=== PATIENT | female | born 1995 | race Two or more races ===

== ENCOUNTER 2017-07-25 23:35 | Emergency (ER) | payer OTHER ==
[2017-07-25 20:56] LABS: BASO % 0.3 % (0.0-1.0); EOS # 0.1 10^3/uL (0.0-0.50); EOS % 1.5 % (0.0-3.0); HEMATOCRIT 30.3 % (36.0-47.0); HEMOGLOBIN 9.8 g/dl (12.0-15.5); IMMATURE GRANULOCYTE % 0.3 % (0-3.0); LYMPH % 30.1 % (24.0-44.0); MEAN CORPUSCULAR HEMOGLOBIN 24.1 pg (27.0-33.0); MEAN CORPUSCULAR HGB CONC 32.3 g/dl (32.0-36.5); MEAN CORPUSCULAR VOLUME 74.6 fl (80.0-96.0); MONO # 0.7 10^3/uL (0.0-0.8); MONO % 10.3 % (0.0-5.0); NEUTROPHILS # 3.8 10^3/uL (1.8-7.7); NEUTROPHILS % 57.5 % (36.0-66.0); PLATELET COUNT, AUTOMATED 225 10^3/uL (150-450); RED BLOOD COUNT 4.06 10^6/uL (4.00-5.40); RED CELL DISTRIBUTION WIDTH 16.7 % (11.5-14.5); WHITE BLOOD COUNT 6.6 10^3/uL (4.0-10.0)
[2017-07-25 21:20] LABS: LACTIC ACID SEPSIS PROTOCOL 1.4 MMOL/L (0.4-2.0)
[2017-07-25 21:37] LABS: CONTROL LINE HCG INT CTR LINE PRESENT; HCG, SERUM QUALITATIVE NEGATIVE (NEGATIVE)
[2017-07-25 21:45] LABS: ALBUMIN 3.5 GM/DL (3.2-5.2); ALBUMIN/GLOBULIN RATIO 1.09 (1.00-1.93); ALKALINE PHOSPHATASE 65 U/L (45-117); ALT/SGPT 18 U/L (12-78); ANION GAP 6 MEQ/L (8-16); AST/SGOT 13 U/L (7-37); BILIRUBIN,DIRECT < 0.1 MG/DL (0.0-0.2); BILIRUBIN,TOTAL 0.1 MG/DL (0.2-1.0); BLOOD UREA NITROGEN 10 MG/DL (7-18); CALCIUM LEVEL 8.6 MG/DL (8.5-10.1); CARBON DIOXIDE LEVEL 28 MEQ/L (21-32); CHLORIDE LEVEL 107 MEQ/L (98-107); CREATININE FOR GFR 0.92 MG/DL (0.55-1.30); GLOMERULAR FILTRATION RATE > 60.0 (>60); GLUCOSE, FASTING 109 MG/DL (70-100); LIPASE 128 U/L (73-393); POTASSIUM SERUM 3.7 MEQ/L (3.5-5.1); SODIUM LEVEL 141 MEQ/L (136-145); TOTAL PROTEIN 6.7 GM/DL (6.4-8.2)
[2017-07-25] MEDS: KETOROLAC 30 MG/ML VIAL (J1885) IV (22:16)
[~2017-07-25 23:35] MED LIST: ISOVUE-370 76% 100ML VIAL (Q9967) As Ordered
== END 2017-07-25 23:55 | disposition home or self-care (01) ==
LOC: M ED 23:35
DX: N92.0 Excessive and frequent menstruation with regular cycle (principal); N80.9 Endometriosis, unspecified; D64.9 Anemia, unspecified; F17.200 Nicotine dependence, unspecified, uncomplicated
CPT/HCPCS: Q9967

== ENCOUNTER 2017-08-17 21:37 | Inpatient (IN) | payer OTHER ==
[2017-08-17 22:58] LABS: HEMATOCRIT 32.3 % (36.0-47.0); HEMOGLOBIN 10.1 g/dl (12.0-15.5); MEAN CORPUSCULAR HEMOGLOBIN 23.8 pg (27.0-33.0); MEAN CORPUSCULAR HGB CONC 31.3 g/dl (32.0-36.5); MEAN CORPUSCULAR VOLUME 76.2 fl (80.0-96.0); PLATELET COUNT, AUTOMATED 218 10^3/uL (150-450); RED BLOOD COUNT 4.24 10^6/uL (4.00-5.40); RED CELL DISTRIBUTION WIDTH 15.9 % (11.5-14.5); WHITE BLOOD COUNT 5.1 10^3/uL (4.0-10.0)
[2017-08-17 23:06] LABS: CONTROL LINE HCG INT CTR LINE PRESENT; HCG, SERUM QUALITATIVE NEGATIVE (NEGATIVE)
[2017-08-17 23:09] LABS: AMPHETAMINES LEVEL URINE NEGATIVE (NEGATIVE); BARBITURATES URINE NEGATIVE (NEGATIVE); BENZODIAZEPINES URINE NEGATIVE (NEGATIVE); CANNABINOIDS URINE NEGATIVE (NEGATIVE); COCAINE METABOLITE URINE NEGATIVE (NEGATIVE); METHADONE URINE NEGATIVE (NEGATIVE); OPIATES URINE NEGATIVE (NEGATIVE); PHENCYCLIDINE URINE NEGATIVE (NEGATIVE)
[2017-08-17 23:20] LABS: ALBUMIN/GLOBULIN RATIO 1.18 (1.00-1.93); ALKALINE PHOSPHATASE 65 U/L (45-117); ALT/SGPT 21 U/L (12-78); ANION GAP 9 MEQ/L (8-16); AST/SGOT 16 U/L (7-37); BILIRUBIN,DIRECT < 0.1 MG/DL (0.0-0.2); BILIRUBIN,TOTAL 0.1 MG/DL (0.2-1.0); BLOOD UREA NITROGEN 11 MG/DL (7-18); CALCIUM LEVEL 9.1 MG/DL (8.5-10.1); CARBON DIOXIDE LEVEL 24 MEQ/L (21-32); CHLORIDE LEVEL 109 MEQ/L (98-107); CREATININE FOR GFR 0.88 MG/DL (0.55-1.30); ETHYL ALCOHOL (ETHANOL) 0.056 % (0.000-0.010); GLOMERULAR FILTRATION RATE > 60.0 (>60); GLUCOSE, FASTING 83 MG/DL (70-100); POTASSIUM SERUM 3.7 MEQ/L (3.5-5.1); SALICYLATE LEVEL < 1.7 MG/DL (5.0-30.0); SODIUM LEVEL 142 MEQ/L (136-145); TOTAL PROTEIN 7.4 GM/DL (6.4-8.2)
[2017-08-17 23:38] LABS: ACETAMINOPHEN LEVEL < 2.0 UG/ML (10.0-30.0)
[2017-08-18] MEDS: CitaloPRAM (CeleXA) 20 MG TAB PO ×2 (09:00→09:28)
[2017-08-18] MEDS: buPROPion **XL** TABLET 150MG (WELLBUTRIN XL) PO (09:28)
[2017-08-18] MEDS ORDERED: MAALOX 30 ML SUSP *UDC PO (12:15)
[2017-08-18] MEDS ORDERED: MOM 30ML SUSPENSION UDC PO (12:15)
[2017-08-18] MEDS ORDERED: traZODone 50 MG TAB PO (12:15)
[2017-08-18] MEDS: NICOTINE 14 MG/24 HR TRANSDERMAL TD (14:21)
[2017-08-18] MEDS ORDERED: diphenhydrAMINE 50 MG CAP PO (14:30)
[2017-08-19] MEDS: NICOTINE 14 MG/24 HR TRANSDERMAL TD (08:13)
[2017-08-19] MEDS: ESCITALOPRAM OXALATE 10 MG TAB (LEXAPRO) PO (15:02)
[2017-08-19] MEDS: PRAZOSIN 1 MG CAP PO (21:56)
[2017-08-19] MEDS: traZODone 100 MG TAB PO (21:56)
[2017-08-20] MEDS: NICOTINE 14 MG/24 HR TRANSDERMAL TD (09:13)
[2017-08-20] MEDS: ESCITALOPRAM OXALATE 10 MG TAB (LEXAPRO) PO (09:14)
[2017-08-20] MEDS: traZODone 100 MG TAB PO (21:24)
[2017-08-20] MEDS: PRAZOSIN 1 MG CAP PO (21:25)
[2017-08-21] MEDS: ESCITALOPRAM OXALATE 10 MG TAB (LEXAPRO) PO (08:41)
[2017-08-21] MEDS: NICOTINE 14 MG/24 HR TRANSDERMAL TD (08:42)
[2017-08-21] MEDS: traZODone 100 MG TAB PO (21:29)
[2017-08-21] MEDS: PRAZOSIN 1 MG CAP PO (21:30)
[2017-08-22] MEDS: ESCITALOPRAM OXALATE 10 MG TAB (LEXAPRO) PO (07:52)
[2017-08-22] MEDS: NICOTINE 14 MG/24 HR TRANSDERMAL TD (07:53)
[2017-08-22] MEDS: ACETAMINOPHEN TAB 650MG DOSE (2X325MG) PO (18:51)
[2017-08-22] MEDS: PRAZOSIN 1 MG CAP PO (21:41)
[2017-08-22] MEDS: traZODone 100 MG TAB PO (21:41)
[2017-08-23] MEDS: ESCITALOPRAM OXALATE 10 MG TAB (LEXAPRO) PO (08:52)
[2017-08-23] MEDS: NICOTINE 14 MG/24 HR TRANSDERMAL TD (08:53)
== END 2017-08-23 12:45 | disposition home or self-care (01) | DRG 885 ==
LOC: M ED 08-18 12:58 → M PSY 08-18 13:00 → M ED INP 08-18 12:03 → M PSY 08-18 13:00 → M ED 21:37
DX: F33.2 Major depressive disorder, recurrent severe without psychotic features (principal); F10.10 Alcohol abuse, uncomplicated; F17.210 Nicotine dependence, cigarettes, uncomplicated; M51.26 Other intervertebral disc displacement, lumbar region; D64.9 Anemia, unspecified; F43.10 Post-traumatic stress disorder, unspecified; Z79.899 Other long term (current) drug therapy; Z91.14 Patient's other noncompliance with medication regimen

== ENCOUNTER 2017-09-03 20:28 | Emergency (ER) | payer OTHER | END 2017-09-03 22:31 | disposition left against medical advice (07) | LOC: M ED 20:28 | DX: Z53.21 Procedure and treatment not carried out due to patient leaving prior to being seen by health care provider (principal) | CPT/HCPCS: 99281 ==

== ENCOUNTER 2017-09-28 14:51 | Emergency (ER) | payer OTHER ==
[2017-09-28] MEDS: ONDANSETRON 4MG/2ML VIAL (J2405) IV (17:26)
[2017-09-28] MEDS: KETOROLAC 30 MG/ML VIAL (J1885) IV (17:26)
[2017-09-28] MEDS: NS 1,000 ML IV (17:28)
[2017-09-28 17:34] LABS: HEMATOCRIT 33.6 % (36.0-47.0); HEMOGLOBIN 10.6 g/dl (12.0-15.5); MEAN CORPUSCULAR HEMOGLOBIN 24.1 pg (27.0-33.0); MEAN CORPUSCULAR HGB CONC 31.5 g/dl (32.0-36.5); MEAN CORPUSCULAR VOLUME 76.4 fl (80.0-96.0); PLATELET COUNT, AUTOMATED 233 10^3/uL (150-450); RED CELL DISTRIBUTION WIDTH 15.7 % (11.5-14.5); WHITE BLOOD COUNT 4.7 10^3/uL (4.0-10.0)
[2017-09-28 17:55] LABS: ANION GAP 6 MEQ/L (8-16); BLOOD UREA NITROGEN 6 MG/DL (7-18); CALCIUM LEVEL 8.7 MG/DL (8.5-10.1); CARBON DIOXIDE LEVEL 28 MEQ/L (21-32); CHLORIDE LEVEL 107 MEQ/L (98-107); CREATININE FOR GFR 0.76 MG/DL (0.55-1.30); GLOMERULAR FILTRATION RATE > 60.0 (>60); GLUCOSE, FASTING 88 MG/DL (70-100); POTASSIUM SERUM 4.3 MEQ/L (3.5-5.1); SODIUM LEVEL 141 MEQ/L (136-145)
[2017-09-28] MEDS: PERCOCET 5MG/325MG TAB PO (20:04)
== END 2017-09-28 20:14 | disposition home or self-care (01) ==
LOC: M ED 14:51
DX: G43.909 Migraine, unspecified, not intractable, without status migrainosus (principal); N80.9 Endometriosis, unspecified; Z79.899 Other long term (current) drug therapy; F17.210 Nicotine dependence, cigarettes, uncomplicated
CPT/HCPCS: J2405

== ENCOUNTER 2017-11-24 15:22 | Emergency (ER) | payer OTHER ==
[2017-11-24] MEDS ORDERED: DERMABOND TOPICAL SKIN ADHESIVE TOP (16:00)
[2017-11-24] MEDS: ADACEL/BOOSTRIX VACCINE (DIPHTH/PERTUSS/ACELL/TETANUS)0.5ML SYR (90715) IM (16:10)
[2017-11-24] MEDS: DERMABOND TOPICAL SKIN ADHESIVE TOP (16:18)
== END 2017-11-24 16:40 | disposition home or self-care (01) ==
LOC: M ED 15:22
DX: S61.216A Laceration without foreign body of right little finger without damage to nail, initial encounter (principal); W26.0XXA Contact with knife, initial encounter; Y92.59 Other trade areas as the place of occurrence of the external cause; Y99.0 Civilian activity done for income or pay; F33.9 Major depressive disorder, recurrent, unspecified; F41.9 Anxiety disorder, unspecified; D50.9 Iron deficiency anemia, unspecified
CPT/HCPCS: 90715

== ENCOUNTER 2018-06-05 07:26 | Emergency (ER) | payer OTHER ==
[~2018-06-05] VITALS: Ht 162.6 cm; Wt 47.7 kg
[~2018-06-05 07:26] MED LIST changes: +CITA20TA7 PO; +DIPH50CA PO; +ESCI10TA2 PO; -ISOVUE-370 76% 100ML VIAL (Q9967) As Ordered; +KETO10TAB PO; +MINI1CAP PO; +TRAZ10TA PO; +VIST25CA PO; +VITACHTA PO; +WELLTAB38 PO
[2018-06-05 08:08] LABS: BASO % 0.3 % (0.0-1.0); EOS # 0.1 10^3/uL (0.0-0.50); EOS % 1.1 % (0.0-3.0); HEMATOCRIT 31.2 % (36.0-47.0); HEMOGLOBIN 9.6 g/dl (12.0-15.5); LYMPH # 1.3 10^3/uL (1.5-6.5); LYMPH % 19.4 % (24.0-44.0); MEAN CORPUSCULAR HEMOGLOBIN 21.8 pg (27.0-33.0); MEAN CORPUSCULAR HGB CONC 30.8 g/dl (32.0-36.5); MEAN CORPUSCULAR VOLUME 70.7 fl (80.0-96.0); MONO # 0.6 10^3/uL (0.0-0.8); NEUTROPHILS # 4.6 10^3/uL (1.8-7.7); PLATELET COUNT, AUTOMATED 220 10^3/uL (150-450); RED BLOOD COUNT 4.41 10^6/uL (4.00-5.40); WHITE BLOOD COUNT 6.6 10^3/uL (4.0-10.0)
[2018-06-05 08:34] LABS: HCG, SERUM QUALITATIVE NEGATIVE (NEGATIVE)
[2018-06-05 08:43] LABS: BLOOD UREA NITROGEN 11 MG/DL (7-18); CALCIUM LEVEL 8.5 MG/DL (8.5-10.1); CARBON DIOXIDE LEVEL 25 MEQ/L (21-32); CHLORIDE LEVEL 109 MEQ/L (98-107); CREATININE FOR GFR 0.72 MG/DL (0.55-1.30); FREE T4 1.12 NG/DL (0.76-1.46); GLOMERULAR FILTRATION RATE > 60.0 (>60); GLUCOSE, FASTING 79 MG/DL (70-100); MAGNESIUM LEVEL 1.8 MG/DL (1.8-2.4); POTASSIUM SERUM 4.1 MEQ/L (3.5-5.1); SODIUM LEVEL 139 MEQ/L (136-145)
[2018-06-05 10:24] VITALS: BP 107/65
--- NOTE | 2018-06-05 10:41 | REP ---
CHEST: Two views. There is no evidence of acute infiltrate. No pleural effusion is seen. The heart is normal in size. The mediastinal silhouette is unremarkable. The visualized osseous structures are intact. IMPRESSION: No acute pulmonary disease. Electronically Signed by Roger Luis MD 06/05/2018 04:25 P
--- NOTE | 2018-06-05 14:52 | ECGEPIP ---
Stationary ECG Study [facility] - ED Test Date: 2018-06-05 Pat Name: AMBER BOJORQUEZ Department: Room: - Gender: F Freight Inspector: : 1995 Requested By: LOBITO Rebolledo Order Number: [id number] Reading MD: Brant Parr Measurements Intervals [place] Rate: 74 P: 55 VT: 169 QRS: 27 QRSD: 88 T: 24 QT: 379 QTc: 422 Interpretive Statements SINUS RHYTHM Similar to tracing done 09-28-17 Electronically Signed On 06-05-2018 14:51:56 EDT by Brant Parr
== END 2018-06-05 10:45 | disposition home or self-care (01) ==
LOC: M ED 07:26 → EDBD 07:26 → M ED 10:45
DX: R55 Syncope and collapse (principal); F17.220 Nicotine dependence, chewing tobacco, uncomplicated; Z86.2 Personal history of diseases of the blood and blood-forming organs and certain disorders involving the immune mechanism; Z86.69 Personal history of other diseases of the nervous system and sense organs; Z79.84 Long term (current) use of oral hypoglycemic drugs; Z79.899 Other long term (current) drug therapy

== ENCOUNTER 2018-06-05 21:10 | Emergency (ER) | payer OTHER ==
[~2018-06-05] VITALS: Ht 162.6 cm; Wt 47.7 kg
[2018-06-05] MEDS ORDERED: PROCHLORPERAZINE 10 MG/2 ML VIAL (J0780) IV ONE (22:15)
[2018-06-05] MEDS ORDERED: KETOROLAC 30 MG/ML VIAL (J1885) IV ONE (22:15)
[2018-06-05] MEDS ORDERED: ACETAMINOPHEN 500 MG TAB PO ONE (22:15)
[2018-06-05] MEDS ORDERED: diphenhydrAMINE INJ 50MG/ML VIAL (J1200) IV ONE (22:15)
[2018-06-05] MEDS ORDERED: NS 1,000 ML IV ONE (22:15)
[2018-06-05 23:28] LABS: HEMATOCRIT 31.8 % (36.0-47.0); HEMOGLOBIN 9.9 g/dl (12.0-15.5); MEAN CORPUSCULAR HEMOGLOBIN 22.3 pg (27.0-33.0); MEAN CORPUSCULAR HGB CONC 31.1 g/dl (32.0-36.5); MEAN CORPUSCULAR VOLUME 71.8 fl (80.0-96.0); PLATELET COUNT, AUTOMATED 232 10^3/uL (150-450); RED BLOOD COUNT 4.43 10^6/uL (4.00-5.40); WHITE BLOOD COUNT 5.1 10^3/uL (4.0-10.0)
--- NOTE | 2018-06-05 23:29 | REPVR ---
EXAM: CT Head Without Contrast EXAM DATE/TIME: 06/05/2018 10:57 PM CLINICAL HISTORY: 23 years old, female; Pain; Headache; Additional info: Syncope this am with no resolution of headache TECHNIQUE: Imaging protocol: Axial computed tomography images of the head/brain without contrast. Radiation optimization: All CT scans at this facility use at least one of these dose optimization techniques: automated exposure control; mA and/or kV adjustment per patient size (includes targeted exams where dose is matched to clinical indication); or iterative reconstruction. COMPARISON: CT Head without contrast 09/28/2017 5:58 PM FINDINGS: Brain: No CT evidence of acute intracranial hemorrhage or acute territorial infarction. No significant mass effect or midline shift. Basal cisterns patent. Ventricles: Normal in size and configuration. Bones/joints: No acute osseous abnormality. Sinuses: Grossly unremarkable. Mastoid air cells: Grossly unremarkable. Soft tissues: Grossly unremarkable. IMPRESSION: No CT evidence of acute intracranial pathology. Electronically signed by: Javid Laws On 06/05/2018 23:28:41 PM
[2018-06-05 23:53] LABS: BLOOD UREA NITROGEN 12 MG/DL (7-18); CALCIUM LEVEL 8.3 MG/DL (8.5-10.1); CARBON DIOXIDE LEVEL 27 MEQ/L (21-32); CHLORIDE LEVEL 108 MEQ/L (98-107); CREATININE FOR GFR 0.74 MG/DL (0.55-1.30); GLOMERULAR FILTRATION RATE > 60.0 (>60); GLUCOSE, FASTING 102 MG/DL (70-100); POTASSIUM SERUM 3.7 MEQ/L (3.5-5.1); SODIUM LEVEL 139 MEQ/L (136-145)
[2018-06-06 01:26] VITALS: BP 113/74
== END 2018-06-06 01:27 | disposition home or self-care (01) ==
LOC: M ED 21:10
DX: G43.829 Menstrual migraine, not intractable, without status migrainosus (principal); Z87.820 Personal history of traumatic brain injury; Z79.899 Other long term (current) drug therapy
CPT/HCPCS: 70450; 80048; 85027; 96361; 96374; 96375; 99284; J0780; J1200; J1885

== ENCOUNTER 2018-06-20 07:56 | Day surgery (SDC) | payer OTHER ==
[~2018-06-20] VITALS: Ht 162.6 cm; Wt 54.9 kg
[2018-06-20] MEDS ORDERED: LR 1,000 ML IV SCH ×2 (08:30→12:00)
[2018-06-20] MEDS ORDERED: LIDOCAINE 1% MDV 20ML VIAL SQ PRN (08:30)
[2018-06-20 08:31] LABS: HEMATOCRIT 31.9 % (36.0-47.0); HEMOGLOBIN 9.8 g/dl (12.0-15.5); MEAN CORPUSCULAR HEMOGLOBIN 21.9 pg (27.0-33.0); MEAN CORPUSCULAR HGB CONC 30.7 g/dl (32.0-36.5); MEAN CORPUSCULAR VOLUME 71.4 fl (80.0-96.0); PLATELET COUNT, AUTOMATED 243 10^3/uL (150-450); RED BLOOD COUNT 4.47 10^6/uL (4.00-5.40); WHITE BLOOD COUNT 3.3 10^3/uL (4.0-10.0)
[2018-06-20] MEDS ORDERED: ROCURONIUM BROMIDE 50 MG/5 ML VIAL As Ordered ONE (08:52)
[2018-06-20] MEDS ORDERED: LIDOCAINE 2% INJ 100 MG/5 ML SDV (FOR ANES.) As Ordered ONE (08:52)
[2018-06-20] MEDS ORDERED: fentaNYL 250 MCG/5 ML INJECTION (J3010) As Ordered ONE (08:52)
[2018-06-20] MEDS ORDERED: PROPOFOL 200 MG/20 ML VIAL As Ordered ONE (08:52)
[2018-06-20] MEDS ORDERED: MIDAZOLAM INJ 2 MG/2 ML VIAL (J2250) As Ordered ONE (08:52)
[2018-06-20 09:03] LABS: HCG, SERUM QUALITATIVE NEGATIVE (NEGATIVE)
[2018-06-20] MEDS ORDERED: BUPIVACAINE HCL 0.25% 30 ML VIAL As Ordered ONE (09:47)
[2018-06-20] MEDS ORDERED: dexameTHASONE 4 MG/ML 1ML VIAL (J1100) As Ordered ONE (10:22)
[2018-06-20] MEDS ORDERED: GLYCOPYRROLATE INJ 0.2 MG/ML 2 ML VIAL As Ordered ONE (10:36)
[2018-06-20] MEDS ORDERED: NEOSTIGMINE 10 MG/10 ML VIAL (J2710) As Ordered ONE ×2 (10:36→10:37)
[2018-06-20] MEDS ORDERED: ONDANSETRON 4MG/2ML VIAL (J2405) As Ordered ONE (10:36)
[2018-06-20] MEDS ORDERED: KETOROLAC 60 MG/2 ML VIAL (J1885) As Ordered ONE (10:36)
[2018-06-20] MEDS ORDERED: SUGAMMADEX SODIUM 500 MG/5 ML VIAL (BRIDION) As Ordered ONE (10:53)
[2018-06-20] MEDS ORDERED: KETOROLAC 30 MG/ML VIAL (J1885) IV ONE (11:00)
[2018-06-20] MEDS ORDERED: PERCOCET 5MG/325MG TAB PO PRN ×2 (11:45→12:00)
[2018-06-20] MEDS ORDERED: MEPERIDINE INJ 25 MG/ML VIAL (J2175) IV PRN (12:00)
[2018-06-20] MEDS ORDERED: fentaNYL 100 MCG/2 ML INJECTION (J3010) IV PRN (12:00)
[2018-06-20] MEDS: METOCLOPRAMIDE INJ 10MG/2ML VIAL (J2765) IV PRN ×2 (12:00→12:39)
[2018-06-20] MEDS ORDERED: ONDANSETRON 4MG/2ML VIAL (J2405) IV PRN (12:00)
--- NOTE | 2018-06-20 12:59 | RO ---
DATE OF PROCEDURE: 06/20/2018 PREOPERATIVE DIAGNOSIS: Chronic pelvic pain. POSTOPERATIVE DIAGNOSIS: Chronic pelvic pain, without any gross evidence of endometriosis or other explanations for cause of pain. PROCEDURE: Diagnostic laparoscopy and Mirena intrauterine device (IUD) insertion. SURGEON: Dr. Kike Rogers [place] OP: Dr. Roger Reza ANESTHESIA: General anesthesia. FLUIDS: 1 liter lactated Ringers (LR). URINE OUTPUT: 200 mL via Sanford catheter. ESTIMATED BLOOD LOSS (EBL): 2 mL. ANTIBIOTICS: None indicated. COMPLICATIONS: None. OPERATIVE FINDINGS: A very small 0.5 cm fibroid on the uterine fundus. Uterus otherwise normal. Normal ovaries bilaterally. Normal tubes bilaterally. Ovarian fossa inspected bilaterally and normal. Anterior and posterior cul-de-sacs normal. Uterosacral ligaments normal. No evidence of endometriosis anywhere in the pelvis. Normal appearing appendix and normal liver edge. Normal gallbladder. Normal gastric curve. DETAILED PROCEDURE DESCRIPTION: The risks, benefits, indications, and alternatives of the procedure were reviewed with the patient and informed consent was obtained. The patient was taken to the operating room where general anesthesia was obtained without difficulty. The patient was then placed in the lithotomy position using Dax stirrups. An exam under anesthesia was then performed and was a significant for a midline anteverted 8-week sized uterus. The patient was then prepped and draped in the usual sterile fashion. A surgical time-out was then performed and the patient's identity and planned procedures were verified with the operative team. A Sanford catheter was placed first to drain the bladder. A sterile speculum was then placed into the patient's vagina and the cervix was visualized. A [employer] uterine manipulator was inserted into the uterus as a means to manipulate the uterus. The sterile speculum was then removed. After gloves were exchanged, attention was turned to the patient's abdomen where a 5 mm skin incision was made in the inferior aspect of the umbilicus after injection of Marcaine. A 5 mm trocar and sleeve were then carefully introduced into the peritoneal cavity under direct visualization at a 90 degree angle while tenting up the abdominal wall. Intraperitoneal placement was confirmed under direct visualization with the laparoscope and entry pressure was noted to be less than 5 mmHg. A pneumoperitoneum was then obtained with several liters of CO2 gas. Upon entry into the peritoneal cavity, structures immediately below the incision were inspected and found to be free of injury. Initial survey of the upper abdomen revealed a normal liver edge, normal gallbladder, and normal gastric curve. A second 5 mm trocar was then inserted in the left lower quadrant under direct visualization after injection of Marcaine and skin incision made with a scalpel. Survey of the patient's pelvis was notable for a normal appearing uterus other than a small 0.5 cm fibroid at the fundus. Fallopian tubes and ovaries bilaterally were normal in appearance. The anterior and posterior cul-de-sacs, ovarian fossa, uterosacral ligaments and everywhere else in the pelvis was inspected carefully and there was no evidence of gross implants of endometriosis anywhere. The appendix was inspected and found to be normal. The gas was then turned off and all CO2 was removed from the patient's abdomen. The trocar was then removed under direct visualization and there was no bleeding seen from the trocar sites. Skin incisions were then reapproximated using Dermabond. Attention was then turned back to the patient's vagina. The EXENDIS uterine manipulator was then removed. A single-tooth tenaculum was then used to grasp the anterior lip of the cervix. The uterus was then sounded to 7.5 cm in length. The Mirena IUD was then opened on the field. The Mirena IUD was then inserted into the uterus per the foil wrapper's guidelines without difficulty. The strings were then cut 3 cm from the external os. The single-tooth tenaculum was then removed from the anterior lip of the cervix and the tenaculum sites were hemostatic. All instruments including the speculum were then removed from the patient's vagina. A vaginal sweep was performed and confirmed no retained foreign objects remained in the vagina. The Mirena IUD strings were then pushed gently into the posterior cul-de-sac. The patient's Sanford catheter was then removed. At the completion of the case, sponge, instrument and needle counts were correct times two. The patient tolerated the procedure well, was taken to the postanesthesia care unit (PACU) in stable condition. Mirena lot number was [id number]. MTDD
[2018-06-20] MEDS ORDERED: ALBUTEROL SULFATE 2.5 MG/0.5 ML INH NEB SOLN INH ONE (13:15)
[2018-06-20 15:06] VITALS: BP 128/81
== END 2018-06-20 15:10 | disposition home or self-care (01) ==
LOC: M SDC 07:56
PROVIDERS: ATTEND Obstetrics & Gynecology
DX: N94.6 Dysmenorrhea, unspecified (principal); R10.2 Pelvic and perineal pain; D64.9 Anemia, unspecified; D25.9 Leiomyoma of uterus, unspecified; F41.9 Anxiety disorder, unspecified; F32.9 Major depressive disorder, single episode, unspecified; Z79.899 Other long term (current) drug therapy; Z87.891 Personal history of nicotine dependence
CPT/HCPCS: 36415; 49320; 58300; 84703; 85027; J1100; J1885; J2250; J2405; J2765; J3010; J7298

== ENCOUNTER 2018-06-23 12:32 | Emergency (ER) | payer OTHER ==
[~2018-06-23] VITALS: Ht 162.6 cm; Wt 47.7 kg
[2018-06-23] MEDS ORDERED: MIRT1TAB16 PO (12:37)
[2018-06-23] MEDS ORDERED: CELE50CA PO (12:37)
[2018-06-23] MEDS ORDERED: ONDANSETRON 4MG/2ML VIAL (J2405) IV ONE (13:45)
[2018-06-23] MEDS ORDERED: NS 1,000 ML IV ONE (13:45)
[2018-06-23] MEDS ORDERED: HALOPERIDOL 5 MG/ML VIAL (J1630) IV ONE (13:45)
[2018-06-23 14:01] LABS: BASO % 0.5 % (0.0-1.0); EOS # 0.1 10^3/uL (0.0-0.50); EOS % 1.8 % (0.0-3.0); HEMOGLOBIN 9.9 g/dl (12.0-15.5); LYMPH # 1.6 10^3/uL (1.5-6.5); LYMPH % 39.6 % (24.0-44.0); MEAN CORPUSCULAR HEMOGLOBIN 22.5 pg (27.0-33.0); MEAN CORPUSCULAR HGB CONC 30.9 g/dl (32.0-36.5); MEAN CORPUSCULAR VOLUME 72.7 fl (80.0-96.0); MONO # 0.4 10^3/uL (0.0-0.8); MONO % 10.2 % (0.0-5.0); NEUTROPHILS # 1.9 10^3/uL (1.8-7.7); NEUTROPHILS % 47.9 % (36.0-66.0); PLATELET COUNT, AUTOMATED 212 10^3/uL (150-450); WHITE BLOOD COUNT 3.9 10^3/uL (4.0-10.0)
[2018-06-23] MEDS ORDERED: ISOVUE-370 76% 100ML VIAL (Q9967) As Ordered ONE (14:23)
[2018-06-23 14:35] LABS: ALBUMIN 3.8 GM/DL (3.2-5.2); ALT/SGPT 17 U/L (12-78); BILIRUBIN,DIRECT < 0.1 MG/DL (0.0-0.2); BILIRUBIN,TOTAL 0.4 MG/DL (0.2-1.0); LIPASE 99 U/L (73-393); TOTAL PROTEIN 7.4 GM/DL (6.4-8.2)
--- NOTE | 2018-06-23 17:29 | REP ---
CT ABDOMEN PELVIS WITH IV CONTRAST ONLY: 06/23/2018. Comparison: 07/25/2017. Clinical history: Laparoscopy for endometriosis, worsening abdominal pain. Technique: Bolus of 100 ml Isovue 370 given with scanning through the abdomen pelvis and both coronal and sagittal reconstructions provided. Findings: CT abdomen: Lung bases show minor dependent atelectatic change but were otherwise clear. Heart not enlarged. There is no pericardial thickening or effusion. No hiatal hernia. Liver, spleen, partially contracted gallbladder, pancreas, adrenal glands and kidneys are all unremarkable. Stomach with some retained fluid but no wall thickening or mass. Small bowel loops partially fluid-filled without abnormal dilatation. Abdominal portion of the colon shows stool and gas scattered without signs of colitis or diverticulitis. The aorta is without aneurysm or dissection. No periaortic or retroperitoneal pathologic sized lymphadenopathy. Lung window review of all slices in the abdomen shows some periumbilical superficial subcutaneous air and also some over the oblique muscles just superficial to the external fascia. I do not see any air pockets deep to the rectus or abdominal fascia. Bone windows show no acute findings as well as the lower ribs. CT pelvis: Sacrum, pelvis and hips and ischia were unremarkable. Kidneys show no hydronephrosis or hydroureter and no ureteral dilatation or stone in the deep pelvis. Bladder partially filled without wall thickening, mass or stone. There is an IUD in the uterine body and fundus. No uterine mass. There is some free fluid in the cul-de-sac to the right of midline small in volume adnexa appear fairly symmetric with a small amount of adjacent free fluid on the right. No definite mass. Distal left colon, sigmoid and rectum without gross abnormality. There is no evidence of free air in the intrapelvic soft tissues. All intra-abdominal and intrapelvic air is contained in bowel loop. Trace amount of free fluid about the cecum. This extends inferiorly to the right ovary and deep pelvis. I do not see fluid in the lateral coronal fascia otherwise. No gross evidence for appendicitis or periappendiceal abscess/mass. No visible appendicolith. Impression: 1. Right pelvis with some free fluid adjacent to the right ovary and in the cul-de-sac as well as along the inferior aspect of the cecum, right colon. No generalized ascites. 2. Adnexa generally symmetric without gross mass. 3. Colon and small bowel loops without acute inflammatory change. The solid organs in the upper abdomen were unremarkable. 4. There is a small amount of periumbilical air superficial to the midline fascia between the rectus muscles and also adjacent to the superficial fascia over the left oblique muscles and subcutaneous fat. This suggests the recent laparoscopy described. No other significant or acute finding. Electronically Signed by Isacc Duron MD 06/23/2018 05:31 P
[2018-06-23 17:31] VITALS: BP 110/74
== END 2018-06-23 17:51 | disposition home or self-care (01) ==
LOC: M ED 12:32
DX: G89.28 Other chronic postprocedural pain (principal); N80.9 Endometriosis, unspecified; R56.9 Unspecified convulsions; G89.29 Other chronic pain; M54.9 Dorsalgia, unspecified; F41.9 Anxiety disorder, unspecified; F32.9 Major depressive disorder, single episode, unspecified; F17.220 Nicotine dependence, chewing tobacco, uncomplicated; Z79.899 Other long term (current) drug therapy
CPT/HCPCS: 36415; 74177; 80047; 80076; 83605; 83690; 85025; 96361; 96374; 96375; 99284; J1630; J2405; Q9967